=== PATIENT | male | born 1990 | race African-American/Black ===

== ENCOUNTER 2016-09-27 16:16 | Emergency (ER) | payer SELFPAY ==
[2016-09-27 16:47] VITALS: BP 122/67
--- NOTE | 2016-09-27 16:49 | UC ---
Hand/Wrist HPI - HPI Summary HPI Summary: 26 YEAR OLD PRESENTS WITH COMPLAINS OF LEFT THUMB CONTUSION SECONDARY TO SLAMMING IN A CAR DOOR. - History Of Current Complaint Chief Complaint: UCUpperExtremity Stated Complaint: LEFT THUMB INJURY Time Seen by Provider: 09/27/16 16:46 - Allergies/Home Medications Allergies/Adverse Reactions: Allergies Allergy/AdvReac Type Severity Reaction Status Date / Time No Known Allergies Allergy Verified 09/27/16 16:42 PMH/Surg Hx/FS Hx/Imm Hx Other History Of: Negative For: Anticoagulant Therapy - Surgical History Surgical History: None - Family History Known Family History: Positive: None - Social History Alcohol Use: None Substance Use Type: None Smoking Status (MU): Former Smoker Review of Systems Constitutional: Negative - LEFT THUMB CONTUSION Skin: Negative Eyes: Negative ENT: Negative Respiratory: Negative Cardiovascular: Negative Gastrointestinal: Negative Genitourinary: Negative Motor: Negative Neurovascular: Negative Musculoskeletal: Other: - LEFT THUMB CONTUSION Neurological: Negative Psychological: Negative All Other Systems Reviewed And Are Negative: Yes Physical Exam Triage Information Reviewed: Yes Vital Signs: Initial Vital Signs Temp 37.4 C 09/27/16 16:40 Pulse 68 09/27/16 16:40 Resp 16 09/27/16 16:40 BP 122/67 09/27/16 16:40 Pulse Ox 100 09/27/16 16:40 Eye Exam: Normal ENT Exam: Normal Dental Exam: Normal Neck exam: Normal Neck: Positive: 1 Respiratory Exam: Normal Cardiovascular Exam: Normal Abdominal Exam: Normal Musculoskeletal: Positive: Other: - LEFT THUMB CONTUSION Neurological Exam: Normal Psychological Exam: Normal Skin Exam: Normal Hand/Wrist Course/Dx - Differential Dx/Diagnosis Provider Diagnoses: OLEFT THUMB CONTUSION Discharge - Discharge Plan Condition: Stable Disposition: HOME Prescriptions: Cephalexin CAP* [Keflex CAP*] 500 mg PO TID #30 cap Patient Education Materials: Finger Sprain (ED), Swollen Joint (ED) Referrals: Non Staff,Doctor [Primary Care Provider] - If Needed Melquiades Devlin MD [Medical Doctor] -
--- NOTE | 2016-09-27 17:41 | RAD ---
INDICATION: Distal left thumb pain after slamming left thumb in car door 2 months earlier COMPARISON: None TECHNIQUE: 3 views of the left thumb were obtained. FINDINGS: The bones are normal alignment. Joint spaces appear maintained. No fracture is seen. On the lateral view of the thumb there is lucency overlying the midportion of the nailbed which could either represent a defect or alternatively subungual gas secondary to infection. IMPRESSION: Lucency overlying the dorsal mid level left thumb nailbed which is either a defect secondary to trauma or possibly subungual gas formation secondary to infection. The underlying bones are intact.
== END 2016-09-27 17:57 | disposition home or self-care (01) ==
LOC: UCCORT 16:16
DX: S60.012A Contusion of left thumb without damage to nail, initial encounter (principal); W23.1XXA Caught, crushed, jammed, or pinched between stationary objects, initial encounter
CPT/HCPCS: 99212; G0463

== ENCOUNTER 2017-02-23 19:58 | Emergency (ER) | payer SELFPAY ==
[2017-02-23 22:07] VITALS: BP 133/70
[2017-02-23] MEDS ORDERED: Benzonatate CAP* 100 MG PO ONE (22:15)
--- NOTE | 2017-02-23 22:20 | UC ---
Respiratory Complaint HPI - HPI Summary HPI Summary: Pt c/o cough, wheezing X 2-3 days. - History of Current Complaint Chief Complaint: UCRespiratory Stated Complaint: UPPER RESP Time Seen by Provider: 02/23/17 22:07 Hx Obtained From: Patient Onset/Duration: Gradual Onset, Lasting Days, Still Present Timing: Constant Severity Initially: Mild Severity Currently: Mild Character: Cough: Nonproductive Aggravating Factors: Deep Breaths, Recumbent Position Alleviating Factors: Nothing Associated Signs And Symptoms: Positive: Wheezing, URI - Risk Factors Pulmonary Embolism Risk Factors: Negative Cardiac Risk Factors: Negative - Allergies/Home Medications Allergies/Adverse Reactions: Allergies Allergy/AdvReac Type Severity Reaction Status Date / Time No Known Allergies Allergy Verified 02/23/17 22:00 PMH/Surg Hx/FS Hx/Imm Hx Previously Healthy: Yes Other History Of: Negative For: Anticoagulant Therapy - Surgical History Surgical History: None - Family History Known Family History: Positive: Cardiac Disease - Social History Occupation: Employed Full-time Lives: With Family Alcohol Use: None Substance Use Type: None Smoking Status (MU): Former Smoker Have You Smoked in the Last Year: No - Immunization History Most Recent Influenza Vaccination: Not the Season Review of Systems Constitutional: Chills, Fatigue Skin: Negative Eyes: Negative ENT: Other - nasal congestion Respiratory: Cough, Other - wheezing Cardiovascular: Negative Gastrointestinal: Negative Genitourinary: Negative Motor: Negative Neurovascular: Negative Musculoskeletal: Negative Neurological: Negative Psychological: Negative Is Patient Immunocompromised?: No All Other Systems Reviewed And Are Negative: Yes Physical Exam Triage Information Reviewed: Yes Appearance: Well-Appearing Vital Signs: Initial Vital Signs Temp 97.9 F 02/23/17 21:58 Pulse 62 02/23/17 21:58 Resp 16 02/23/17 21:58 BP 133/70 02/23/17 21:58 Pulse Ox 100 02/23/17 21:58 Vital Signs Reviewed: Yes Eye Exam: Normal ENT Exam: Other ENT: Positive: Nasal congestion Neck exam: Normal Respiratory Exam: Other Respiratory: Positive: Wheezing Cardiovascular Exam: Normal Musculoskeletal Exam: Normal Neurological Exam: Normal Psychological Exam: Normal Skin Exam: Normal UC Diagnostic Evaluation - Laboratory O2 Sat by Pulse Oximetry: 100 Respiratory Course/Dx - Differential Dx/Diagnosis Differential Diagnosis/HQI/PQRI: Bronchitis, Pulmonary Embolism, Other - URI Provider Diagnoses: URI Discharge - Discharge Plan Condition: Stable Disposition: HOME Prescriptions: Albuterol HFA INHALER* [Ventolin HFA Inhaler*] 1 - 2 puff INH Q6H PRN #1 mdi PRN Reason: Sob/Wheezing Benzonatate CAP* [Tessalon 100 MG CAP*] 100 mg PO Q8H PRN #21 cap PRN Reason: Cough predniSONE TAB* [Deltasone TAB*] 30 mg PO DAILY #12 tab Patient Education Materials: Upper Respiratory Infection (ED) Referrals: Non Staff,Doctor [Primary Care Provider] - If Needed
== END 2017-02-23 22:35 | disposition home or self-care (01) ==
LOC: UCCORT 19:58
DX: J06.9 Acute upper respiratory infection, unspecified (principal); Z87.891 Personal history of nicotine dependence
CPT/HCPCS: 99211; A9270-GY; G0463

== ENCOUNTER 2018-07-11 12:05 | Emergency (ER) | payer SELFPAY ==
[2018-07-11 12:33] VITALS: BP 109/87
--- NOTE | 2018-07-11 13:21 | UC ---
FLU HPI - HPI Summary HPI Summary: Pt presents with c/o cough, fever, sinus pressure, pain, body aches X 1 week. - History of Current Complaint Chief Complaint: UCGI Stated Complaint: SINUS SHAKY Time Seen by Provider: 07/11/18 13:12 Hx Obtained From: Patient Onset/Duration: Sudden Onset, Lasting Days - 7 Severity Currently: Mild Severity Initially: Mild Pain Intensity: 2 Associated Signs & Symptoms: Positive: Fever, Myalgia, Cough, Nasal Congestion Related Hx: Possible Flu/Infectious Exposure - Risk Factors Influenza Risk Factors: Negative - Allergy/Home Medications Allergies/Adverse Reactions: Allergies Allergy/AdvReac Type Severity Reaction Status Date / Time pecans Allergy Unknown Uncoded 07/11/18 12:20 Reaction Details Home Medications: Home Medications Ibuprofen TAB* [Motrin TAB* 600 MG] 600 mg PO ONCE PRN 07/11/18 [History Confirmed 07/11/18] PMH/Surg Hx/FS Hx/Imm Hx Previously Healthy: Yes Other History Of: Negative For: Anticoagulant Therapy - Surgical History Surgical History: None - Family History Known Family History: Positive: None, Cardiac Disease - Social History Occupation: Employed Full-time Lives: With Family Alcohol Use: Occasionally Substance Use Type: None Smoking Status (MU): Former Smoker Have You Smoked in the Last Year: No - Immunization History Most Recent Influenza Vaccination: Not the 2016/2017 Season Vaccination Up to Date: No Review of Systems All Other Systems Reviewed And Are Negative: Yes Constitutional: Positive: Fever, Chills, Fatigue Skin: Positive: Negative Eyes: Positive: Negative ENT: Positive: Sore Throat, Sinus Congestion, Sinus Pain/Tenderness Respiratory: Positive: Cough Cardiovascular: Positive: Negative Gastrointestinal: Positive: Negative Genitourinary: Positive: Negative Motor: Positive: Negative Neurovascular: Positive: Negative Musculoskeletal: Positive: Myalgia Neurological: Positive: Negative Psychological: Positive: Negative Is Patient Immunocompromised?: No Physical Exam Triage Information Reviewed: Yes Appearance: Ill-Appearing Vital Signs: Initial Vital Signs Temp 98.6 F 07/11/18 12:21 Pulse 79 07/11/18 12:21 Resp 20 07/11/18 12:21 BP 109/87 07/11/18 12:21 Pulse Ox 100 07/11/18 12:21 Vital Signs Reviewed: Yes Eye Exam: Normal ENT: Positive: Nasal congestion, Sinus tenderness Dental Exam: Normal Neck exam: Normal Respiratory Exam: Normal Cardiovascular Exam: Normal Musculoskeletal Exam: Normal Neurological Exam: Normal Psychological Exam: Normal Skin Exam: Normal Flu Course/Dx - Differential Dx/Diagnosis Differential Diagnosis/HQI/PQRI: Influenza, Upper Respiratory Infection Provider Diagnosis: Sinusitis, Cough Discharge - Sign-Out/Discharge Documenting (check all that apply): Patient Departure All imaging exams completed and their final reports reviewed: No Studies - Discharge Plan Condition: Stable Disposition: HOME Prescriptions: Amoxicillin PO (*) [Amoxicillin 875 MG (*)] 875 mg PO Q12H #20 tab Benzonatate CAP* [Tessalon 100 MG CAP*] 200 mg PO Q8H PRN #30 cap PRN Reason: Cough predniSONE TAB* [Deltasone 10 MG TAB*] 30 mg PO DAILY #12 tab Patient Education Materials: Sinusitis (ED), Acute Cough (ED) Referrals: [facility] [place] [facility] [Outside] - If Needed Non Staff,Doctor [Primary Care Provider] - - Billing Disposition and Condition Condition: STABLE Disposition: Home - Attestation Statements Provider Attestation: I was available for consult. This patient was seen by the JANEY. The patient was not presented to, seen by, or examined by me. -Marlene
== END 2018-07-11 13:32 | disposition home or self-care (01) ==
LOC: UCCORT 12:05
DX: J32.9 Chronic sinusitis, unspecified (principal); R05 Cough; Z87.891 Personal history of nicotine dependence; Z91.018 Allergy to other foods
CPT/HCPCS: 81003; 99212; G0463

== ENCOUNTER 2018-12-25 16:26 | Emergency (ER) | payer SELFPAY ==
[2018-12-25 16:56] VITALS: BP 117/65
--- NOTE | 2018-12-25 16:59 | UC ---
Throat Pain/Nasal Jhon HPI - HPI Summary HPI Summary: 28 yo male presents with sinus pain/pressure/congestion for the last 1.5 weeks. He has not been taking anything OTC for his symptoms. He has felt feverish at times, but has not taken his temperature. Denies sore throat, rash, n/v. - History of Current Complaint Chief Complaint: UCRespiratory Stated Complaint: SINUS Time Seen by Provider: 12/25/18 16:59 Hx Obtained From: Patient Onset/Duration: Gradual Onset Severity: Mild Pain Intensity: 4 Pain Scale Used: 0-10 Numeric - Allergies/Home Medications Allergies/Adverse Reactions: Allergies Allergy/AdvReac Type Severity Reaction Status Date / Time pecans Allergy Unknown Uncoded 12/25/18 16:56 Reaction Details PMH/Surg Hx/FS Hx/Imm Hx - Additional Past Medical History Additional PMH: None Other History Of: Negative For: Anticoagulant Therapy - Surgical History Surgical History: None - Family History Known Family History: Positive: Cardiac Disease - Social History Lives: With Family Alcohol Use: Occasionally Substance Use Type: None Smoking Status (MU): Former Smoker Have You Smoked in the Last Year: No - Immunization History Most Recent Influenza Vaccination: Not the 2017/2017 Season Vaccination Up to Date: No Review of Systems All Other Systems Reviewed And Are Negative: No Constitutional: Positive: Negative Skin: Positive: Negative Eyes: Positive: Negative ENT: Positive: Nasal Discharge, Sinus Congestion, Sinus Pain/Tenderness Respiratory: Positive: Cough Cardiovascular: Positive: Negative Gastrointestinal: Positive: Negative Neurological: Positive: Negative Psychological: Positive: Negative Physical Exam - Summary Physical Exam Summary: GENERAL: NAD. WDWN. No pain distress. SKIN: No rashes, sores, lesions, or open wounds. HEENT: Head: AT/NC Eyes: EOM intact. Conjunctiva clear without inflammation or discharge. Ears: Hearing grossly normal. TMs intact, no bulging, erythema, or edema. Nose: Nasal mucosa mildly swollen and erythematous with yellow/ clear discharge. TTP maxillary and frontal sinus. Positive post nasal drip Throat: Posterior oropharynx without exudates, erythema, or tonsillar enlargement. Uvula midline. NECK: Supple. Nontender. No lymphadenopathy. CHEST: CTAB. No r/r/w. No accessory muscle use. Breathing comfortably and in no distress. CV: RRR. Pulses intact. NEURO: Alert. PSYCH: Age appropriate behavior. Triage Information Reviewed: Yes Vital Signs: Initial Vital Signs Temp 98.4 F 12/25/18 16:53 Pulse 63 12/25/18 16:53 Resp 18 12/25/18 16:53 BP 117/65 12/25/18 16:53 Pulse Ox 96 12/25/18 16:53 Vital Signs Reviewed: Yes Throat Pain/Nasal Course/Dx - Course Course Of Treatment: Sinusitis - Differential Dx/Diagnosis Provider Diagnosis: Sinusitis Discharge ED - Sign-Out/Discharge Documenting (check all that apply): Patient Departure All imaging exams completed and their final reports reviewed: No Studies - Discharge Plan Condition: Stable Disposition: HOME Prescriptions: Amoxicillin PO (*) [Amoxicillin 875 MG (*)] 875 mg PO BID #14 tab guaiFENesin ER TAB [Mucinex*] 600 mg PO BID #14 tab.er Patient Education Materials: Sinusitis (ED) Referrals: No Primary Care Phys,NOPCP [Primary Care Provider] - Additional Instructions: If you develop a fever, shortness of breath, chest pain, new or worsening symptoms - please call your PCP or go to the ED immediately. - Billing Disposition and Condition Condition: STABLE Disposition: Home
== END 2018-12-25 17:12 | disposition home or self-care (01) ==
LOC: UCCORT 16:26
DX: J32.9 Chronic sinusitis, unspecified (principal); Z91.018 Allergy to other foods; Z87.891 Personal history of nicotine dependence
CPT/HCPCS: 99212; G0463

== ENCOUNTER 2019-03-10 20:35 | Emergency (ER) | payer SELFPAY ==
[2019-03-10 20:56] VITALS: BP 123/67
[2019-03-10] MEDS ORDERED: Ondansetron ODT TAB* 4 MG PO ONE ×2 (20:59→21:59)
[2019-03-10] MEDS ORDERED: Albuterol 2.5 MG/3 ML NEB.SOL* (0.083%) INH ONE (21:13)
--- NOTE | 2019-03-10 21:24 | UC ---
Nausea/Vomiting/Diarrhea HPI - HPI Summary HPI Summary: LAST NIGHT ONSET OF NAUSEA AND STOMACH PAIN. SYMPTOMS HAVE WORSENED THROUGHOUT THE DAY. STARTED VOMITING THIS EVENING WHILE AT WORK. GIRLFRIEND PICKED HIM UP ABOUT 30 MINUTES E[employer]IPMENT [employer] AND TE[employer] AND STATES HE WAS HEAVING AND VOMITING THE WHOLE DRIVE HERE. STATES HE HAS STARTED TO FEEL WHEEZY AND SHORT OF BREATH. HAS A MILD COUGH AND SORE THROAT. HAS A HISTORY OF ASTHMA. NO FEVER. - History of Current Complaint Chief Complaint: UCAbdominalPain Stated Complaint: VOMITING Time Seen by Provider: 03/10/19 20:58 Hx Obtained From: Patient, Family/Foam Caster - GIRLFRIEND Onset/Duration: Gradual Onset, Lasting Hours, Still Present Timing: Constant Severity Initially: Moderate Severity Currently: Moderate Pain Intensity: 6 Pain Scale Used: 0-10 Numeric Location: Diffuse Aggravating Factor(s): Nothing Alleviating Factor(s): Nothing Nausea/Vomiting Duration: 12-24 hours Vomiting Characteristics: Retching, Nonbilious Diarrhea Presence: No - Allergies/Home Medications Allergies/Adverse Reactions: Allergies Allergy/AdvReac Type Severity Reaction Status Date / Time pecans Allergy Unknown Uncoded 03/10/19 20:56 Reaction Details Home Medications: Home Medications Albuterol HFA INHALER* [Ventolin HFA Inhaler*] 2 puff INH Q4HR PRN 03/10/19 [ History Confirmed 03/10/19] PMH/Surg Hx/FS Hx/Imm Hx Respiratory History: Asthma Other History Of: Negative For: Anticoagulant Therapy - Surgical History Surgical History: None - Family History Known Family History: Positive: Cardiac Disease - Social History Alcohol Use: Occasionally Substance Use Type: None Smoking Status (MU): Former Smoker Have You Smoked in the Last Year: No - Immunization History Most Recent Influenza Vaccination: Not the 2016/2017 Season Vaccination Up to Date: No Review of Systems All Other Systems Reviewed And Are Negative: Yes Constitutional: Positive: Negative ENT: Positive: Sore Throat Respiratory: Positive: Shortness Of Breath, Cough Cardiovascular: Positive: Negative Gastrointestinal: Positive: Vomiting, Nausea Physical Exam Triage Information Reviewed: Yes Appearance: Well-Nourished, Ill-Appearing - APPEARS UNCOMFORTABLE. HEAVING DURING ENCOUNTER. Vital Signs: Initial Vital Signs Temp 98.7 F 03/10/19 20:49 Pulse 70 03/10/19 20:49 Resp 18 03/10/19 20:49 BP 123/67 03/10/19 20:49 Pulse Ox 99 03/10/19 20:49 Vital Signs Reviewed: Yes Eyes: Positive: Conjunctiva Clear ENT: Positive: Hearing grossly normal, Pharynx normal Neck: Positive: Supple, Nontender, No Lymphadenopathy Respiratory Exam: Normal Respiratory: Negative: Wheezing Cardiovascular Exam: Normal Abdomen Description: Positive: Soft, Other: - MILDLY TENDER DIFFUSELY. Negative : Distended, Guarding Bowel Sounds: Positive: Present Musculoskeletal: Positive: No Edema Neurological: Positive: Alert Psychological: Positive: Age Appropriate Behavior Skin: Negative: Rashes Re-Evaluation - Re-Evaluation First Eval Re-Evaluation Time: 21:55 - FEELS AND LOOKS A BIT BETTER AFTER ALBUTEROL NEB AND 4MG ZOFRAN Change: Improved Naus/Vom/Diarrhea Course/Dx - Course Course Of Treatment: PATIENT FELT SLIGHTLY IMPROVED AFTER 4 MG OF ZOFRAN. ABLE TO KEEP DOWN SMALL SIPS OF WATER AND ICE CHIPS. CLINICALLY NOT DEHYDRATED AT PRESENT. ADVISED CAREFUL HYDRATION AND CLEAR LIQUID DIET FOR NOW. ADVANCE DIET SLOWLY TOLERATED. HE WILL GO DIRECTLY TO THE ER IF HE IS UNABLE TO TOLERATE FLUIDS OR HAS PERSISTENT VOMITING. FROM A RESPIRATORY STANDPOINT HE DID FEEL LESS WHEEZY AND TIGHT AFTER AN ALBUTEROL INHALER. ALBUTEROL NEBS REFILLED. GIVEN THE PATIENT SEEMS TO BE SUFFERING FROM ACUTE BRONCHOSPASM IN ADDITION TO HIS ACUTE VOMITING DISCUSSED THE CONCERN FOR ASPIRATION. HE WILL GO DIRECTLY TO THE ER IF HE HAS WORSENING SHORTNESS OF BREATH, WHEEZE OR IF HE DEVELOPS FEVER, CHEST PAIN OR ANY OTHER CONCERNING SYMPTOMS. - Differential Dx/Diagnosis Provider Diagnosis: Nausea & vomiting, Bronchospasm, acute Condition At Discharge: Stable Discharge ED - Sign-Out/Discharge Documenting (check all that apply): Patient Departure All imaging exams completed and their final reports reviewed: No Studies - Discharge Plan Condition: Stable Disposition: HOME Prescriptions: Albuterol 2.5MG/3ML (0.083%)* [Ventolin 2.5 MG/3 ML NEB.NANCI*] 2.5 mg INH Q4H PRN #1 box PRN Reason: Wheezing Ondansetron ODT TAB* [Zofran Odt TAB*] 4 mg PO Q6H PRN #20 tab.odt PRN Reason: Nausea/Vomiting Patient Education Materials: Asthma (ED), Acute Nausea and Vomiting (ED) Forms: *Work Release Referrals: [facility] [Outside] - If Needed Additional Instructions: GASTROENTERITIS: You have gastroenteritis ("intestinal flu"). This disease is usually caused by a virus. There is no specific treatment. The disease will end by itself. For now, the main danger is dehydration. Give clear liquids. Examples include Pedialyte, Gatorade, clear broth, juices, flat sodas, and jello water. Medications may be prescribed by the physician for special cases. Once tolerated, the clear liquid diet may be supplemented with rice, cereal, toast, applesauce, or bananas. GO TO [facility] [place] ER WITHOUT FAIL if vomiting increases or blood appears in the bowel movement or vomitus; if you fail to improve, or if signs of dehydration occur (tongue and mouth become dry, lethargy). ENSURE ADEQUATE HYDRATION. CLEAR LIQUIDS, BLAND DIET. AVOID CAFFEINE, DAIRY, GREASY, SPICY FOODS. ONCE YOU ARE TOLERATING CLEAR LIQUIDS YOU CAN ADVANCE TO SIMPLE, BLAND FOODS. USE YOUR ALBUTEROL INHALER AND/OR NEBULIZER NEEDED FOR YOUR COUGH/WHEEZE. IF YOUR SYMPTOMS PERSIST OR IF YOU DEVELOP SHORTNESS OF BREATH, FEVER, CHEST PAIN GO DIRECTLY TO THE ER FOR FURTHER EVALUATION. CALL THE NUMBER BELOW FOR ASSISTANCE IN ESTABLISHING WITH A PCP An additional resource available to assist in finding the appropriate physician for your health care needs is the [facility] ([facility]). You may contact them by calling [phone]. - Billing Disposition and Condition Condition: STABLE Disposition: Home
== END 2019-03-10 22:15 | disposition home or self-care (01) ==
LOC: UCEAST 20:35
DX: R11.2 Nausea with vomiting, unspecified (principal); J45.909 Unspecified asthma, uncomplicated; J02.9 Acute pharyngitis, unspecified; Z91.018 Allergy to other foods; Z87.891 Personal history of nicotine dependence
CPT/HCPCS: 99213; A9270-GY; G0463